=== PATIENT | male | born 1960 | race Caucasian/White ===

== ENCOUNTER → 2016-11-25 | Outpatient (CLI) | payer OTHER ==
[2016-11-25 08:02] LABS: CREATININE 0.9 mg/dL (0.6-1.3)
[2016-11-25 08:08] LABS: ESTIMATED GFR (MDRD EQUATION) > 60
== END | disposition disaster alternative care site (69) ==
LOC: GLAB 06:56 → GRAD 08:00
PROVIDERS: Otolaryngology
DX: H90.5 Unspecified sensorineural hearing loss (principal)
CPT/HCPCS: A9577